=== PATIENT | female | born 1930 | race Caucasian/White ===

== ENCOUNTER 2017-09-08 16:45 | Emergency (ER) | payer OTHER, MEDICARE ==
[~2017-09-08] VITALS: Ht 154.9 cm; Wt 56.7 kg
[~2017-09-08 16:45] MED LIST: ALEVE220 M1 PO; AMOX-CLAV 875-1 EACH PO; ASPIRIN EC81 M1 PO; BENZONATATE100 M1 PO; BREO ELLIPTA 11 EACH PO; CALCIUM 500 +1 EAC5 PO; CARDIZEM60 M1 PO; DILAUDID2 M1 PO; ELIQUIS5 M1 PO; FENOFIBRATE145 M1 PO; FUROSEMIDE20 M1 PO; GABAPENTIN100 M2 PO; HYDROCHLOROTHIA25 M1 PO; LANOXIN125 MCG PO; LANSOPRAZOLE30 M2 PO; LEVAQUIN500 M1 PO; LOSARTAN POTASS25 M1 PO; METOPROLOL SUCC50 M2 PO; METRONIDAZOLE500 M1 PO; MULTIVITAMINS1 EAC3 PO; PREDNISONE20 M1 PO; PROAIR HFA8.5 GM INH; RAMIPRIL10 M1 PO; SPIRIVA18 MCG INH; VENTOLIN HFA18 GM INH; VITAMIN D31000 UNI1 PO
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
[2017-09-08 19:05] VITALS: BP 129/74
== END 2017-09-08 19:19 ==
LOC: ERH 16:45
DX: S52.611A Displaced fracture of right ulna styloid process, initial encounter for closed fracture (principal); W19.XXXA Unspecified fall, initial encounter; Y92.9 Unspecified place or not applicable; Y93.9 Activity, unspecified; Z79.01 Long term (current) use of anticoagulants
CPT/HCPCS: 73080-RT; 73110-RT